=== PATIENT | female | born 1995 | race Caucasian/White ===

== ENCOUNTER 2018-03-24 15:38 | Inpatient (IN) ==
[2018-03-24] MEDS: BETAMETH SODIUM PHOS/ACETATE 30 MG/5 ML VIAL IM SCH (17:04)
[2018-03-24] MEDS: NIFEdipine 10 MG CAPSULE PO SCH (18:24)
[2018-03-25] MEDS ORDERED: ACETAMINOPHEN 500 MG TABLET PO PRN (00:32)
[2018-03-25] MEDS: NIFEdipine 10 MG CAPSULE PO SCH ×6 (06:12→20:51)
[2018-03-25] MEDS ORDERED: ONDANSETRON 4 MG/2 ML VIAL IV PRN (09:25)
[2018-03-25] MEDS ORDERED: AMPICILLIN INJ 2,000 MG in SODIUM CHLORIDE 0.9% 100 ML IV ONE (09:31)
[2018-03-25] MEDS: LACTATED RINGERS 1,000 ML IV SCH ×2 (09:48→10:55)
[2018-03-25 09:54] LABS: Basophils % 0.1 % (0.0-0.8); Hemoglobin 12.3 GM/DL (12.0-16.0); Immature Granulocytes % 0.9 %; Immature Granulocytes Absolute 0.18 #; Lymphocytes % 9.6 % (21.3-54.2); Mean Corpuscular HGB Conc 33.2 GM/DL (32-36); Mean Corpuscular Hemoglobin 30 PG (27-34); Mean Corpuscular Volume 90.9 FL (87-102); Mean Platelet Volume 9.9 FL (9.6-12.0); Monocytes # 0.7 10*3/uL (0.11-0.8); Monocytes % 3.6 % (1.7-12.7); Neutrophils # 17.8 10*3/uL (1.4-7.4); Neutrophils % 85.8 % (38.7-73.9); Platelet Count 331 T/CUMM (130-400); Red Blood Count 4.07 MC/CUMM (3.8-5.5); Red Cell Distribution Width 13.1 % (9.3-17.3); White Blood Count 20.7 T/CUMM (4-12)
[2018-03-25] MEDS ORDERED: ERYTHROMYCIN INJ 500 MG in SODIUM CHLORIDE 0.9% 100 ML IV SCH (10:00)
[2018-03-25 10:12] LABS: Band Neutrophils 1 % (0-10); Lymphocytes 14 % (20-55); Segmented Neutrophils 83 % (50-85); Total Cells Counted 100
[2018-03-25 10:13] LABS: Microcytosis Slight
[2018-03-25] MEDS ORDERED: INFLUENZA VIRUS VACCINE 0.5 ML SYRINGE IM ONE (10:30)
[2018-03-25] MEDS: CLINDAMYCIN INJ 600 MG in PREMIX 1 EACH IV SCH ×3 (10:55→23:33)
[2018-03-25] MEDS: AMPICILLIN INJ 1,000 MG in SODIUM CHLORIDE 0.9% 100 ML IV SCH ×3 (13:35→20:52)
[2018-03-25] MEDS: BETAMETH SODIUM PHOS/ACETATE 30 MG/5 ML VIAL IM SCH (16:48)
[2018-03-25] MEDS ORDERED: ZALEPLON 5 MG CAPSULE PO PRN (18:23)
[2018-03-26] MEDS: NIFEdipine 10 MG CAPSULE PO SCH ×5 (01:26→17:38)
[2018-03-26] MEDS: AMPICILLIN INJ 1,000 MG in SODIUM CHLORIDE 0.9% 100 ML IV SCH ×5 (01:28→17:37)
[2018-03-26] MEDS: CLINDAMYCIN INJ 600 MG in PREMIX 1 EACH IV SCH ×3 (04:48→16:52)
[2018-03-26] MEDS: LACTATED RINGERS 1,000 ML IV SCH (11:09)
[2018-03-26 16:11] VITALS: BP 115/61
== END 2018-03-26 18:30 | disposition home or self-care (01) | DRG 563 ==
LOC: N.LDOUT 15:38 → N.LD 15:39
PROVIDERS: ADMIT Obstetrics & Gynecology; ATTEND Obstetrics & Gynecology

== ENCOUNTER 2018-04-01 09:31 | Inpatient (IN) ==
[2018-04-01] MEDS ORDERED: BUTORPHANOL 2 MG/ML VIAL IV PRN (09:50)
[2018-04-01] MEDS ORDERED: ONDANSETRON 4 MG/2 ML VIAL IV PRN ×2 (09:50→19:33)
[2018-04-01] MEDS ORDERED: LACTATED RINGERS 500 ML IV PRN (09:50)
[2018-04-01] MEDS ORDERED: AMPICILLIN INJ 2,000 MG in SODIUM CHLORIDE 0.9% 100 ML IV ONE (09:51)
[2018-04-01] MEDS ORDERED: OXYTOCIN/LR 20 UNIT/1,000 ML BAG IV SCH (10:00)
[2018-04-01] MEDS ORDERED: diphenhydrAMINE 50 MG/1 ML VIAL IV PRN ×2 (10:01)
[2018-04-01] MEDS ORDERED: hydrOXYzine HCL 25 MG/1 ML VIAL IM PRN (10:01)
[2018-04-01] MEDS ORDERED: LACTATED RINGERS 250 ML IV PRN (10:01)
[2018-04-01] MEDS ORDERED: CITRIC ACID/SODIUM CITRATE 30 ML UDCUP PO ONE (10:01)
[2018-04-01] MEDS ORDERED: LACTATED RINGERS 1,000 ML IV ONE (10:01)
[2018-04-01] MEDS ORDERED: FAMOTIDINE 20 MG/2 ML VIAL IV ONE (10:01)
[2018-04-01] MEDS ORDERED: ePHEDrine 50 MG/ML AMP IV PRN (10:01)
[2018-04-01] MEDS ORDERED: ONDANSETRON 4 MG/2 ML VIAL IV ONE (10:01)
[2018-04-01] MEDS ORDERED: NALOXONE 0.4 MG/ML VIAL IV PRN (10:01)
[2018-04-01] MEDS ORDERED: PROMETHAZINE 25 MG/1 ML VIAL IM ONE (10:01)
[2018-04-01] MEDS: LACTATED RINGERS 1,000 ML IV SCH ×2 (10:08→18:15)
[2018-04-01 10:18] LABS: Basophils % 0.2 % (0.0-0.8); Eosinophils # 0.1 10*3/uL (0.0-0.87); Eosinophils % 0.5 % (0.00-10.9); Hematocrit 38.3 VOL% (35.7-47.0); Hemoglobin 12.6 GM/DL (12.0-16.0); Immature Granulocytes Absolute 0.17 #; Lymphocytes # 2.7 10*3/uL (1.4-4.0); Lymphocytes % 15.8 % (21.3-54.2); Mean Corpuscular HGB Conc 32.9 GM/DL (32-36); Mean Corpuscular Hemoglobin 30 PG (27-34); Mean Corpuscular Volume 89.9 FL (87-102); Monocytes # 0.8 10*3/uL (0.11-0.8); Monocytes % 4.8 % (1.7-12.7); Neutrophils # 13.2 10*3/uL (1.4-7.4); Neutrophils % 77.7 % (38.7-73.9); Platelet Count 354 T/CUMM (130-400); Red Blood Count 4.26 MC/CUMM (3.8-5.5); Red Cell Distribution Width 13.2 % (9.3-17.3)
[2018-04-01] MEDS ORDERED: LACTATED RINGERS 1,000 ML IV SCH (10:30)
[2018-04-01] MEDS ORDERED: fentaNYL 2 MCG/ROPIV 0.2% EPID 100 ML EPIDURAL SCH (10:30)
[2018-04-01 10:34] LABS: Albumin 2.7 G/DL (3.4-5.0); Bilirubin,Total 0.5 MG/DL (0.2-1.0); Calcium 9.6 MG/DL (8.5-10.1); Osmolality,Calculated 275.5 MOS/KG (273-304); Potassium 4.1 MMOL/L (3.5-5.1); Total Protein 6.7 G/DL (6.4-8.3)
[2018-04-01] MEDS ORDERED: INFLUENZA VIRUS VACCINE 0.5 ML SYRINGE IM ONE (11:28)
[2018-04-01] MEDS: AMPICILLIN INJ 1,000 MG in SODIUM CHLORIDE 0.9% 100 ML IV SCH ×2 (13:52→18:15)
[2018-04-01 13:57] LABS: Apearance,Urine CLEAR (Clear); Bacteria,Urine Occasional /HPF (Few); Bilirubin,Urine Negative (Negative); Blood, Urine Negative (Negative); Glucose,Urine (UA) Negative (Negative); Ketones,Urine Negative (Negative); Mucus,Urine Occasional /LPF (Occasional); Nitrite,Urine Negative (Negative); Protein,Urine Negative; RBC,Urine <1 /HPF (0-4); Urine Color Yellow (Yellow); Urine Specific Gravity 1.015 (1.001-1.035); Urine Urobilinogen < 2.0 EU/DL (0.2-1.0); WBC,Urine <1 /HPF (0-6)
[2018-04-01] MEDS ORDERED: LIDOCAINE 1% 50 ML VIAL ONE (16:55)
[2018-04-01] MEDS ORDERED: miSOPROStol 200 MCG TABLET ONE ×3 (16:55→17:22)
[2018-04-01] MEDS ORDERED: CARBOPROST TROMETHAMINE 250 MCG/ML AMP IM ONE (16:56)
[2018-04-01] MEDS ORDERED: METHYLERGONOVINE 0.2 MG/1 ML AMP ONE (16:56)
[2018-04-01] MEDS ORDERED: fentaNYL 100 MCG/2 ML VIAL ONE (17:43)
[2018-04-01] MEDS ORDERED: oxyCODONE/ACETAMINOPHEN 5-325 MG TABLET PO PRN ×2 (19:33)
[2018-04-01] MEDS ORDERED: HYDROCORTISONE 2.5% RECTAL CREAM 30 GM TUBE TOP PRN (19:33)
[2018-04-01] MEDS ORDERED: ACETAMINOPHEN 325 MG TABLET PO PRN (19:33)
[2018-04-01] MEDS ORDERED: BENZOCAINE 20%/MENTHOL 0.5% SPRAY 56 GM CAN TOP PRN (19:33)
[2018-04-01] MEDS ORDERED: MEASLES/MUMPS/RUBELLA VACCINE 0.5 ML VIAL SUBCUT ONE (19:33)
[2018-04-01] MEDS ORDERED: LANOLIN 50% CREAM 0.3 OZ TUBE TOP PRN (19:33)
[2018-04-01] MEDS ORDERED: RHO(D) IMMUNE GLOBULIN 300 MCG SYRINGE IM ONE (19:33)
[2018-04-01] MEDS ORDERED: DIPH/TET/ACEL PERT BOOSTER VACCINE 0.5 ML VIAL IM ONE (19:33)
[2018-04-01] MEDS ORDERED: OXYTOCIN/LR 20 UNIT/1,000 ML BAG IV ONE (19:33)
[2018-04-01] MEDS ORDERED: BISACODYL 10 MG SUPP RECTAL PRN (19:33)
[2018-04-01] MEDS ORDERED: WITCH HAZEL PADS 100/JAR TOP PRN (19:33)
[2018-04-02] MEDS: DOCUSATE SODIUM 100 MG CAPSULE PO SCH ×3 (03:34→20:14)
[2018-04-02 05:54] LABS: Basophils % 0.2 % (0.0-0.8); Eosinophils # 0.1 10*3/uL (0.0-0.87); Eosinophils % 0.5 % (0.00-10.9); Hematocrit 34.6 VOL% (35.7-47.0); Hemoglobin 11.1 GM/DL (12.0-16.0); Immature Granulocytes % 0.6 %; Immature Granulocytes Absolute 0.09 #; Lymphocytes # 3.2 10*3/uL (1.4-4.0); Lymphocytes % 19.6 % (21.3-54.2); Mean Corpuscular HGB Conc 32.1 GM/DL (32-36); Mean Corpuscular Hemoglobin 29 PG (27-34); Mean Corpuscular Volume 91.3 FL (87-102); Mean Platelet Volume 10.2 FL (9.6-12.0); Monocytes # 1.1 10*3/uL (0.11-0.8); Monocytes % 6.7 % (1.7-12.7); Neutrophils # 11.6 10*3/uL (1.4-7.4); Neutrophils % 72.4 % (38.7-73.9); Platelet Count 260 T/CUMM (130-400); Red Blood Count 3.79 MC/CUMM (3.8-5.5); Red Cell Distribution Width 13.4 % (9.3-17.3); White Blood Count 16.1 T/CUMM (4-12)
[2018-04-02] MEDS: IBUPROFEN 800 MG TABLET PO PRN ×2 (11:16→20:14)
[2018-04-03 07:19] VITALS: BP 120/74
[2018-04-03] MEDS: IBUPROFEN 800 MG TABLET PO PRN (07:51)
[2018-04-03] MEDS: DOCUSATE SODIUM 100 MG CAPSULE PO SCH (07:52)
== END 2018-04-03 14:22 | disposition home or self-care (01) | DRG 560 ==
LOC: N.LDOUT 09:31 → N.LD 09:33 → N.OB 22:10
PROVIDERS: ADMIT Obstetrics & Gynecology; ATTEND Obstetrics & Gynecology